=== PATIENT | female | born 1955 | race Hispanic/Latino ===

== ENCOUNTER 2019-08-04 10:15 | Observation (INO) | payer MEDICARE ==
[2019-08-04] VITALS (7 sets, daily range): BP systolic 117–153; BP diastolic 68–75
[~2019-08-04] VITALS: Ht 160 cm; Wt 93.4 kg
[~2019-08-04 10:15] MED LIST: CLOPIDOGREL75 MG PO; LEVOXYL112 MCG PO; LIPITOR20 MG PO; LOPRESSOR25 MG PO; NORVASC5 MG PO
--- OUTSIDE RECORDS SUMMARY | 2019-08-04 10:22 | XMS REPORT ---
Author [facility] Address Unknown Phone Unavailable Care Team Providers Care Avionics Installer Name Role Phone Unavailable Unavailable Payers Payer Name Policy Type Policy Number Effective Date Expiration Date Problems This patient has no known problems. Allergies, Adverse Reactions, Alerts Allergy Name Allergy Type Status Severity Reaction(s) Onset Date Inactive Date Treating Clinician Comments No Known Allergies DA Active U 2018-06-12 00:00:00 No Known Allergies DA Active U 2012-04-18 00:00:00 Medications This patient has no known medications. Results Test Description Test Time Test Comments Text Results Atomic Results Result Comments ALBUMIN 2019-03-22 07:41:00 ALBUMIN (test code=ALB) 3.20 g/dL 3.4-5.0 [id number] 07:41:00* Test Item Value Reference Range Comments PREALBUMIN (test code=PREALB) 15.9 mg/dL 16.0-40.0 CBC W/AUTO [id number] 08:43:00* Test Item Value Reference Range Comments WHITE BLOOD CELL (test code=WBC) 7.51 x10 3/uL 4.5-11.0 RED BLOOD CELL (test code=RBC) 5.40 x10 6/uL 3.54-5.02 HEMOGLOBIN (test code=HGB) 15.8 g/dL 11.0-15.0 HEMATOCRIT (test code=HCT) 49.9 % 33.0-45.0 MEAN CELL VOLUME (test code=MCV) 92.4 fL 81.0-99.0 MEAN CELL HGB (test code=MCH) 29.3 pg 27.0-33.0 MEAN CELL HGB CONCETRATION (test code=MCHC) 31.7 g/dL 33.0-37.0 RED CELL DISTRIBUTION WIDTH CV (test code=RDW) 14.1 % 11.5-14.5 RED CELL DISTRIBUTION WIDTH SD (test code=RDW-SD) 48.2 fL 37.0-54.0 PLATELET COUNT (test code=PLT) 262 x10 3/uL 150-400 MEAN PLATELET VOLUME (test code=MPV) 9.7 fL 7.0-9.0 NEUTROPHIL % (test code=NT%) 63.2 % 56.0-77.0 IMMATURE GRANULOCYTE % (test code=IG%) 0.3 % 0.0-2.0 LYMPHOCYTE % (test code=LY%) 23.7 % 14.0-32.0 MONOCYTE % (test code=MO%) 8.8 % 4.8-9.0 EOSINOPHIL % (test code=EO%) 3.3 % 0.3-3.7 BASOPHIL % (test code=BA%) 0.7 % 0.0-2.0 NUCLEATED RBC % (test code=NRBC%) 0.0 % 0-0 NEUTROPHIL # (test code=NT#) 4.75 x10 3/uL 2.0-7.6 IMMATURE GRANULOCYTE # (test code=IG#) 0.02 x10 3/uL 0.00-0.03 LYMPHOCYTE # (test code=LY#) 1.78 x10 3/uL 1.0-3.8 MONOCYTE # (test code=MO#) 0.66 x10 3/uL 0.1-0.8 EOSINOPHIL # (test code=EO#) 0.25 x10 3/uL 0.0-0.2 BASOPHIL # (test code=BA#) 0.05 x10 3/uL 0.0-0.2 NUCLEATED RBC # (test code=NRBC#) 0.00 x10 3/uL 0.0-0.1 MANUAL DIFF REQUIRED (test code=MDIFF) NO COMPREHENSIVE METABOLIC [id number] 08:04:00* Test Item Value Reference Range Comments SODIUM (test code=NA) 139 mEq/L 134-147 POTASSIUM (test code=K) 4.1 mEq/L 3.4-5.0 CHLORIDE (test code=CL) 106 mEq/L 100-108 CARBON DIOXIDE (test code=CO2) 24 mEq/L 21-33 ANION GAP (test code=GAP) 13 0-20 GLUCOSE (test code=GLU) 89 mg/dL 70-110 BLOOD UREA NITROGEN (test code=BUN) 16 mg/dL 7-18 GLOMERULAR FILTRATION RATE (test code=GFR) 84.0 80-90 Units of measure=ml/min/1.73 m2 CREATININE (test code=CREAT) 0.7 mg/dL 0.6-1.3 TOTAL PROTEIN (test code=PROT) 7.7 g/dL 6.4-8.2 ALBUMIN (test code=ALB) 3.50 g/dL 3.4-5.0 CALCIUM (test code=CA) 9.0 mg/dL 8.0-10.5 BILIRUBIN TOTAL (test code=BILT) 0.90 mg/dL 0.0-1.0 SGOT/AST (test code=AST) 22 IUnit/L 15-37 SGPT/ALT (test code=ALT) 32 IUnit/L 15-65 ALKALINE PHOSPHATASE TOTAL (test code=ALKP) 120 IUnit/L 20-125 [id number] 08:04:00* Test Item Value Reference Range Comments MAGNESIUM (test code=MAG) 2.30 mg/dL 1.8-2.4 [id number] 14:25:00* Test Item Value Reference Range Comments GLUBED (test code=GLUBED) 79 MG/DL 70-110 Performed by certified lye peel operator at [facility] [id number] 17:50:00* Test Item Value Reference Range Comments GLUBED (test code=GLUBED) 101 MG/DL 70-110 Performed by certified lye peel operator at [facility] - MRI C-SPINE W W/O [id number] 12:53:00 FAX: Lea Benitez MD [phone] [place]: St: [facility] FAX: Andreina Seymour [phone] Name: JODY CASTRO [facility] [place] : 1955 Age/S: 63/F [address] [place] [address] Unit #: [id number] Loc: [address] [place] [address] Phys: Andreina Davenport MD Acct: [id number] Dis Date: Status: ADM IN PHONE #: [phone] Exam Date: 03/12/2019 1143 FAX #: [phone] Reason: left sided weakness EXAMS: CPT CODE: [id number] MRI C-SPINE W W/O CONT 60177 Patient Name: JODY CASTRO : 1955; Age: 63 years y/o Female MR: [id number] Study: - MRI C-SPINE W W/O CONT 03/12/2019 10:09 AM Ordering Physician: Andreina Banks MD Clinical Indication: left sided weakness Comparison: None TECHNIQUE: Multiplanar T1, T2, STIR weighted and postcontrast MRI of the cervical spine is performed on the 1.5 Arianne magnet. Contrast: Dotarem 20 mL FINDINGS: ALIGNMENT AND GENERAL A SSESSMENT: Mild reversal of the normal cervical lordosis. Mild degen erative disc throughout the cervical spine. Retention cysts in bilateral m axillary sinuses. No spinal cord signal abnormality DISC SPA VIKKI: C2-C3:No significant disc protrusion, spinal canal narrowing, or neural foraminal narrowing. C3-C4: No significant disc p rotrusion, spinal canal narrowing, or neural foraminal narrowing. C4-C5: Posterior disc osteophyte complex with effacement of the ante rior thecal sac and indentation of the anterior cervical cord without fora katya or canal stenosis. C5-C6: Posterior disc osteophyte complex without foraminal or canal stenosis. C6-C7:Posterior disc osteophyte complex without foraminal or canal stenosis. C7- T1: No significant disc protrusion, spinal canal narrowing, or neural fora katya narrowing. PAGE 1 Signed Report (CONTINUED) FAX: Lea Benitez MD [phone] [place]u s: [facility] [address]: ADM FAX: Andreina Seymour [phone] Name: JODY CASTRO [facility] : 1955 Ag e/S: 63/F [address] [place] [address] Unit #: [id number] Loc: D[address].M[address] [place] [address] Phys: Andreina Davenport MD Acct: [id number] Dis Date: Status: ADM IN PHONE #: [phone] Exam Date: 03/12/2019 1143 FAX #: [phone] Reason: left sided weakness EXAMS: CPT CODE: [id number] MRI C-SPINE W W/O CONT 60047 <Continued> IMPRESSION: 1. No significant neural foraminal or spinal canal stenosis. 2. Mild degenerative changes of the cervical spine, as detailed above. SL: [id number] at 5451 Reported and signed by: Adolfo Mann M.D. CC: Lea Benitez MD; Andreina Banks MD Technologist: William Ocampo RT(R)(CT)(MR) Trnscrd Date/Time/By: 03/12/2019 (6472) : By: [email or web address] Orig Print D/T: S: 03/12/2019 (0624) PAGE 2 Signed Report [id number] 10:32:00* Test Item Value Reference Range Comments GLUBED (test code=GLUBED) 116 MG/DL 70-110 Performed by certified lye peel operator at [facility] [id number] 10:31:00* Test Item Value Reference Range Comments GLUBED (test code=GLUBED) 102 MG/DL 70-110 Performed by certified lye peel operator at [facility] BASIC METABOLIC [id number] 07:07:00* Test Item Value Reference Range Comments SODIUM (test code=NA) 140 mEq/L 134-147 POTASSIUM (test code=K) 3.9 mEq/L 3.4-5.0 CHLORIDE (test code=CL) 109 mEq/L 100-108 CARBON DIOXIDE (test code=CO2) 27 mEq/L 21-33 ANION GAP (test code=GAP) 8 0-20 GLUCOSE (test code=GLU) 86 mg/dL 70-110 BLOOD UREA NITROGEN (test code=BUN) 12 mg/dL 7-18 GLOMERULAR FILTRATION RATE (test code=GFR) 84.0 80-90 Units of measure=ml/min/1.73 m2 CREATININE (test code=CREAT) 0.7 mg/dL 0.6-1.3 CALCIUM (test code=CA) 8.4 mg/dL 8.0-10.5 [id number] 07:07:00* Test Item Value Reference Range Comments PHOSPHOROUS (test code=PHOS) 3.3 mg/dL 2.5-4.9 [id number] 07:07:00* Test Item Value Reference Range Comments MAGNESIUM (test code=MAG) 2.20 mg/dL 1.8-2.4 CBC W/AUTO [id number] 06:40:00* Test Item Value Reference Range Comments WHITE BLOOD CELL (test code=WBC) 7.07 x10 3/uL 4.5-11.0 RED BLOOD CELL (test code=RBC) 5.08 x10 6/uL 3.54-5.02 HEMOGLOBIN (test code=HGB) 15.2 g/dL 11.0-15.0 HEMATOCRIT (test code=HCT) 47.9 % 33.0-45.0 MEAN CELL VOLUME (test code=MCV) 94.3 fL 81.0-99.0 MEAN CELL HGB (test code=MCH) 29.9 pg 27.0-33.0 MEAN CELL HGB CONCETRATION (test code=MCHC) 31.7 g/dL 33.0-37.0 RED CELL DISTRIBUTION WIDTH CV (test code=RDW) 14.5 % 11.5-14.5 RED CELL DISTRIBUTION WIDTH SD (test code=RDW-SD) 50.6 fL 37.0-54.0 PLATELET COUNT (test code=PLT) 245 x10 3/uL 150-400 MEAN PLATELET VOLUME (test code=MPV) 9.8 fL 7.0-9.0 NEUTROPHIL % (test code=NT%) 67.6 % 56.0-77.0 IMMATURE GRANULOCYTE % (test code=IG%) 0.1 % 0.0-2.0 LYMPHOCYTE % (test code=LY%) 21.2 % 14.0-32.0 MONOCYTE % (test code=MO%) 6.8 % 4.8-9.0 EOSINOPHIL % (test code=EO%) 3.7 % 0.3-3.7 BASOPHIL % (test code=BA%) 0.6 % 0.0-2.0 NUCLEATED RBC % (test code=NRBC%) 0.0 % 0-0 NEUTROPHIL # (test code=NT#) 4.78 x10 3/uL 2.0-7.6 IMMATURE GRANULOCYTE # (test code=IG#) 0.01 x10 3/uL 0.00-0.03 LYMPHOCYTE # (test code=LY#) 1.50 x10 3/uL 1.0-3.8 MONOCYTE # (test code=MO#) 0.48 x10 3/uL 0.1-0.8 EOSINOPHIL # (test code=EO#) 0.26 x10 3/uL 0.0-0.2 BASOPHIL # (test code=BA#) 0.04 x10 3/uL 0.0-0.2 NUCLEATED RBC # (test code=NRBC#) 0.00 x10 3/uL 0.0-0.1 MANUAL DIFF REQUIRED (test code=MDIFF) NO [id number] 20:46:00* Test Item Value Reference Range Comments GLUBED (test code=GLUBED) 111 MG/DL 70-110 Performed by certified lye peel operator at [facility] [id number] 18:00:00* Test Item Value Reference Range Comments GLUBED (test code=GLUBED) 81 MG/DL 70-110 Performed by certified lye peel operator at [facility] - MRI BRAIN W/O [id number] 16:11:00 FAX: Lea Benitez MD [phone] [place]: St: ADM FAX: Ronda Snow MD [phone] Name: JODY CASTRO [facility] [place] : 1955 Age/S: 63/F [address] [place] [address] Unit #: [id number] Loc: [facility] X [address] Phys: Ronda Parkinson MD Acct: [id number] Dis Date: Status: ADM IN PHONE #: [phone] Exam Date: 03/11/2019 1541 FAX #: [phone] Reason: Ischemic Stroke EXAMS: CPT CODE: [id number] MRI BRAIN W/O CONT 73800 MRI BRAIN WITHOUT CONTRAST INDICATION: Left-sided weakness. Acute stroke. TECHNIQUE: Multiple MR sequences of the brain were performed without contrast. COMPARISONS: CT brain 03/10/2019. CT angiogram head 03/10/2019. FINDINGS: Th ere are mucous retention cysts or polyps in the maxillary sinuses without a fluid level. The mastoid air cells and middle ears appear clear as visualized. The vascular flow voids are preserved. The cerebral ventricles are normal caliber. There is no cerebral mass effect, midline shift, intracranial hemorrhage or acute large vessel territory cerebral cortical edema. There is no restricted water diffusion. There are min imal chronic small vessel ischemic changes in the white matter. There is mild generalized brain parenchymal volume loss. IMPRESSION: 1. There is no acute intracranial process. There is no cerebr al edema, acute ischemia or hemorrhage. 2. There are minimal ch ronic changes of small vessel ischemic disease in the white matter. The re is mild brain parenchymal volume loss. Electronically S igned by Ammy Rodriguez on 03/11/2019 at 1611 Reported and signed by: Axel Rodriguez D.O. CC: Lea Benitez MD; Ronda Parkinson MD Technologist: William Ocampo, RT(R)(CT)(MR) Trnscrd Date/Time/By: 03/2019 (1611) : By: [email or web address] Orig Print D/T: S: 03/11/2019 (0728) PAGE 1 Signed Report [id number] 12:04:00* Test Item Value Reference Range Comments GLUBED (test code=GLUBED) 100 MG/DL 70-110 Performed by certified lye peel operator at [facility] [id number] 07:54:00* Test Item Value Reference Range Comments GLUBED (test code=GLUBED) 99 MG/DL 70-110 Performed by certified lye peel operator at [facility] [id number] 06:14:00* Test Item Value Reference Range Comments HOMOCYSTEINE (test code=HOMOCY) 4.3 umol/L 3.2-10.7 ICE,INFORMED WES FORD TO SEND LAV TOP ON ICE.EMILIA OCHOA.KDPBASIC METABOLIC [id number] 05:56:00* Test Item Value Reference Range Comments SODIUM (test code=NA) 143 mEq/L 134-147 POTASSIUM (test code=K) 4.2 mEq/L 3.4-5.0 CHLORIDE (test code=CL) 111 mEq/L 100-108 CARBON DIOXIDE (test code=CO2) 25 mEq/L 21-33 ANION GAP (test code=GAP) 11 0-20 GLUCOSE (test code=GLU) 89 mg/dL 70-110 BLOOD UREA NITROGEN (test code=BUN) 11 mg/dL 7-18 GLOMERULAR FILTRATION RATE (test code=GFR) 84.0 80-90 Units of measure=ml/min/1.73 m2 CREATININE (test code=CREAT) 0.7 mg/dL 0.6-1.3 CALCIUM (test code=CA) 8.4 mg/dL 8.0-10.5 LIPID PROFILE (CORONARY RISK)2019-03-11 05:56:00* Test Item Value Reference Range Comments TRIGLYCERIDES (test code=TRIG) 230 mg/dL 40-150 CHOLESTEROL (test code=CHOL) 130 mg/dL <200 CHOLESTEROL/HDL RATIO (test code=CHOLHDL) 2.41 RATIO 3.27-4.44 RISK ASSOCIATED WITH CHOL/HDL RATIOS: RISK MALE FEMALE1/2 AVERAGE 3.43 3.27AVERAGE 4.97 4.442X AVERAGE 9.55 7.053X AVERAGE 23.39 11.04 NOTE THAT THE REFERENCE VALUE IS RELATEDTO RISK LEVELS RECOMMENDED BY THE NATL.HEART, LUNG, AND BLOOD INST. HDL CHOLESTEROL (test code=HDL) 54.0 mg/dL 39-96 LIPOPROTEIN LDL (test code=LDL) 55 mg/dL 0-100 <100 [id number] NEAR OPTIMAL/ABOVE [id number] HIGH>IK=147 VERY HIGH*Guidelines provided by the National Cholesterol EducationProgram Adult Treatment Panel III HEPATIC FUNCTION [id number] 05:56:00* Test Item Value Reference Range Comments TOTAL PROTEIN (test code=PROT) 6.9 g/dL 6.4-8.2 ALBUMIN (test code=ALB) 3.30 g/dL 3.4-5.0 BILIRUBIN TOTAL (test code=BILT) 0.80 mg/dL 0.0-1.0 BILIRUBIN DIRECT (test code=BILD) 0.20 MG/DL 0.0-0.30 BILIRUBIN INDIRECT (test code=BILIND) 0.60 MG/DL SGOT/AST (test code=AST) 21 IUnit/L 15-37 SGPT/ALT (test code=ALT) 25 IUnit/L 15-65 ALKALINE PHOSPHATASE TOTAL (test code=ALKP) 96 IUnit/L 20-125 [id number] 05:56:00* Test Item Value Reference Range Comments PHOSPHOROUS (test code=PHOS) 4.6 mg/dL 2.5-4.9 [id number] 05:56:00* Test Item Value Reference Range Comments MAGNESIUM (test code=MAG) 2.40 mg/dL 1.8-2.4 SED RATE [id number] 05:55:00* Test Item Value Reference Range Comments SED RATE WESTERGREN (test code=SEDW) 10 mm/hr 0-20 HGBA1C%2019-03-11 05:42:00* Test Item Value Reference Range Comments HGBA1C% (test code=HGBA1C%) 5.9 %A1C 4.8-6.0 CBC W/AUTO [id number] 05:19:00* Test Item Value Reference Range Comments WHITE BLOOD CELL (test code=WBC) 7.00 x10 3/uL 4.5-11.0 RED BLOOD CELL (test code=RBC) 4.86 x10 6/uL 3.54-5.02 HEMOGLOBIN (test code=HGB) 14.5 g/dL 11.0-15.0 HEMATOCRIT (test code=HCT) 45.4 % 33.0-45.0 MEAN CELL VOLUME (test code=MCV) 93.4 fL 81.0-99.0 MEAN CELL HGB (test code=MCH) 29.8 pg 27.0-33.0 MEAN CELL HGB CONCETRATION (test code=MCHC) 31.9 g/dL 33.0-37.0 RED CELL DISTRIBUTION WIDTH CV (test code=RDW) 14.6 % 11.5-14.5 RED CELL DISTRIBUTION WIDTH SD (test code=RDW-SD) 49.5 fL 37.0-54.0 PLATELET COUNT (test code=PLT) 246 x10 3/uL 150-400 MEAN PLATELET VOLUME (test code=MPV) 9.5 fL 7.0-9.0 NEUTROPHIL % (test code=NT%) 63.3 % 56.0-77.0 IMMATURE GRANULOCYTE % (test code=IG%) 0.1 % 0.0-2.0 LYMPHOCYTE % (test code=LY%) 26.0 % 14.0-32.0 MONOCYTE % (test code=MO%) 7.1 % 4.8-9.0 EOSINOPHIL % (test code=EO%) 2.9 % 0.3-3.7 BASOPHIL % (test code=BA%) 0.6 % 0.0-2.0 NUCLEATED RBC % (test code=NRBC%) 0.0 % 0-0 NEUTROPHIL # (test code=NT#) 4.43 x10 3/uL 2.0-7.6 IMMATURE GRANULOCYTE # (test code=IG#) 0.01 x10 3/uL 0.00-0.03 LYMPHOCYTE # (test code=LY#) 1.82 x10 3/uL 1.0-3.8 MONOCYTE # (test code=MO#) 0.50 x10 3/uL 0.1-0.8 EOSINOPHIL # (test code=EO#) 0.20 x10 3/uL 0.0-0.2 BASOPHIL # (test code=BA#) 0.04 x10 3/uL 0.0-0.2 NUCLEATED RBC # (test code=NRBC#) 0.00 x10 3/uL 0.0-0.1 MANUAL DIFF REQUIRED (test code=MDIFF) NO [id number] 01:14:00* Test Item Value Reference Range Comments GLUBED (test code=GLUBED) 86 MG/DL 70-110 Performed by certified lye peel operator at [facility] [id number] 19:39:00* Test Item Value Reference Range Comments GLUBED (test code=GLUBED) 96 MG/DL 70-110 Performed by certified lye peel operator at [facility] [id number] 18:56:00* Test Item Value Reference Range Comments TROPONIN-I (test code=TROPI) < 0.015 ng/mL 0.000-0.045 Negative: <=0.045 Positive: >=0.046 Correlation with serial results, other cardiac markers andclinical findings is necessary to determine the clinicalsignificance of this result. Results using different methodologies should not be comparedto one another as quantitative results may vary by method. COMMENTS: 3 troponins total (including troponin done in ED)- XR CHEST 1 V 2019-03-10 15:25:00 FAX: Dave Osei MD [phone] [place]: St: ADM Name: JODY ROSADO [facility] : [birth year] Age/S: 63/F [address] [place], [place] [address]vd Unit #: [id number] Loc: [place] [address] Phys: Dave Reis MD Acct: [id number] Dis Date: Status: ADM IN PHONE #: [phone] Exam Date: 03/10/2019 1511 FAX #: [phone] Reason: stroke EXAMS: CPT CODE: [id number] XR CHEST 1 V 21063 1 VIEW CXR. PORTABLE EXAM 3:04 PM HISTORY: Acute stroke. COMPARISON: 06/12/2018 chest x-ray. The lungs are clear with normal pulmonary vasculatur e. Cardiomediastinal silhouette normal. No pleural abnormality. Bony thorax intact. IMPRESSION: Normal exam. END OF IMPRESSION SL: [id number] at 1525 Reported and signed by: Luke Salgado M.D. CC: Dave Reis MD Technologist: So Martinez, RT(R); Cherry SaezRT(R) Trnscrd Date/Time/By: 03/10/2019 (152) : By: Rell Orig Print D/T: S: (1081) PAGE 1 Signed Rep ort - CT ANGIO [id number] 14:22:00 Name: JODY CASTRO [facility] : 1955 Age/S: 63 / F [address] [place] [address] Unit #: [id number] Loc: [place] [address] Phys: James Reis MD Acct: [id number] Di s Date: Status: REG ER PHONE #: Exam Date: 03/10/2019 1355 FAX #: Reason: L SIDED WEAKNESS EXAMS: CPT CODE: [id number] CT ANGIO NECK [address] STUDY: - CT ANGIO HEAD, - CT ANGIO NECK 03/10/2019 1:51 PM Ordering Physician: Dave Reis MD Patient Name: JODY CASTRO MR: [id number] : 1955; Age: 63 years y/o Female Clinical Indication: L SIDED WEA KNESS Comparison: None TECHNIQUE: Sequential trans-a xial images of the head and neck were obtained with a multi-detector helic al CT after iodinated contrast administration. Additionally, two-dimension al and three-dimensional reformatted images were prepared. IV CONTRAST: 100cc Omnipaque 300 DOSE: CT imaging performed at this loca tion utilizes radiation dose optimization technique which includes one or more of the followin) Automated exposure control; 2) Adjustment of the mA and/or kV according to patient's size; 3) Use of iterative reconstruct ion techniques. DLP (mGy-cm): 2007 CTA NECK: VASCULAR EVALUATION Aortic arch and great vessel origins: Mild to moderate atherosclerosis in the arch with calcified and noncalcifi ed plaque noted. Brachiocephalic trunk: No significant atheroscler osis, narrowing, aneurysm, or dissection. Subclavian arterie s: No significant narrowing in the visualized portions after accounting fo r mild artifact. Right carotid artery: Normal without evidence of significant atherosclerosis, narrowing, or dissection. Left carotid artery: Normal without evidence of significant atherosclerosis, na rrowing, or dissection. Vertebral arteries: No significant atheros clerosis, narrowing, or dissection. PAGE 1 Signed Report (CONTINUED) Name: [facility] [place] : 1955 Age/S: 63 / F [address] [place] [address] Blvd Unit #: [id number] Loc: [place] [address] Phys: Dave Reis MD Acct: [id number] Dis Date: Status: R EG ER PHONE #: [phone] Exam Date: 02/2019 1355 FAX #: [phone] Reason: L SIDED WEAKNE SS EXAMS: CPT CODE: [id number] CT ANGIO NECK 7 0498 <Continued> Any reported ICA stenosis directly references the distal internal carotid diameter as the denominator for stenosis measurement. NON-VASCULAR STRUCTURES: Soft tissues: No significant abnormality or mass. Lymphadenopathy: Scattered subcentimeter bilateral cervical lymph nodes without lymphadenopathy. Airway: Clear. Visualized lung apices: Clear. Osseous structures: Mild spinal degenerative change without fracture, dislocation, or focal osseous lesion. CTA HEAD: ANTERIOR CIRCULATION Internal carotid arteries: No focal stenosis or aneurysm. Middle cerebral arteries: No focal stenosis or aneurysm in the M1 and M2 segments. The peripheral MCA branches appear normal. Anterior cerebral arteries: No focal stenosis or aneurysm. Normal anterior communicating artery. POSTERIOR CIRCULATION Vertebrobasilar system: No focal stenosis or aneurysm. Posterior cerebral arteries: No focal stenosis or aneurysm. Superior cerebellar arteries: Normal in appearance. AICA: Normal in appearance. PICA: Normal in appearance. PAGE 2 Signed Report (CONTINUED) Name: JODY CASTRO [facility] [place] : 1955 Age/S: 63 / F [address] [place] [address] Unit #: [id number] Loc: [place] [address] Phys: Dave Reis MD Acct: [id number] Dis Date: Status: REG ER PHONE #: [phone] Exam Date: 03/10/2019 1355 FAX #: [phone] Reason: L SIDED WEAKNESS EXAMS: CPT CODE: [id number] CT ANGIO NECK [address]779 < Continued> BRAIN PARENCHYMA: The brain volume and ventricle size are appropriate for age. No evidence of acute intracranial hemorrhage, mass lesion, mass effect, midline shift, or extra-axial fluid collection. Postcontrast images demonstrate no abnormal enhancement. VENTRICLES: The lateral ventricles, third ventricle, fourth ventricle, and basilar cisterns are appropriate for degree of atrophy present. PARANASAL SINUSES: Bilateral maxillary sinus retention cysts MASTOIDS: Clear. ORBITS: The visualized portions of the orbits are normal. SOFT TISSUES: No significant abnormality. SKULL: No acute fracture or suspicious osseous lesion. IMPRESSION: No acute vascular abnormality or significant vascular stenosis in the head and neck. Calcified and noncalcified plaque noted at the aortic arch. Findings discussed with Dr. Szymanski at 2:20 PM 03/10/2019 by telephone. SL: [id number] at 7736 Reported and signed by: Adolfo Mann M.D. CC: Dave Reis MD Technologist:RT Humberto(R) CTDI: DLP: Trnscb Date/Time: 03/10/2019 (1422) t.[email or web address].[email or web address] Orig Print D/T: S: 03/10/2019 (1988) PAGE 3 Signed Report - CT ANGIO [id number] 14:22:00 Name: JODY CASTRO [facility] [place] : 1955 Age/S: 63 / F [address] [place] [address] Unit #: [id number] Loc: [place] [address] Phys: Dave Reis MD Acct: [id number] Dis Date: Status: REG ER PHONE #: [phone] Exam Date: 03/10/2019 1355 FAX #: [phone] Reason: L SIDED WEAKNESS EXAMS: CPT CODE: [id number] CT ANGIO HEAD 39582 STUDY: - CT ANGIO HEAD, - CT ANGIO NECK 03/10/2019 1:51 PM Ordering Physician: Dave Reis MD Patient Name: JODY CASTRO MR: [id number] : 1955; Age: 63 years y/o Female Clinical Indication: L SIDED WEAKNESS Comparison: None TECHNIQUE: Sequential trans-axial images of the head and neck were obtained with a multi-detector helical CT after iodinated contrast administration. Additionally, two-dimensional and three-dimensional reformatted images were prepared. IV CONTRAST: 100cc Omnipaque 300 DOSE: CT imaging performed at this location utilizes radiation dose optimization technique which includes one or more of the followin) Automated exposure control; 2) Adjustment of the mA and/or kV according to patient's size; 3) Use of iterative reconstruction techniques. DLP (mGy-cm): 2007 CTA NECK: VASCULAR EVALUATION Aortic arch and great vessel origins: Mild to moderate atherosclerosis in the arch with calcified and noncalcified plaque noted. Brachiocephalic trunk: No significant atherosclerosis, narrowing, aneurysm, or dissection. Subclavian arteries: No significant narrowing in the visualized portions after accounting for mild artifact. Right carotid artery: Normal without evidence of significant atherosclerosis, narrowing, or dissection. Left carotid artery: Normal without evidence of significant atherosclerosis, narrowing, or dissection. Vertebral arteries: No significant atherosclerosis, narrowing, or dissection. PAGE 1 Signed Report (CONTINUED) Name: JODY CASTRO [facility] : 1955 Age/S: 63 / F [address] [place] [address] Blvd Unit #: [id number] Loc: [place] [address] Phys: Dave Reis MD Acct: [id number] Dis Date: Status: REG ER PHONE #: [phone] Exam Date: 03/10/2019 1355 FAX #: [phone] Reason: L SIDED WEAKNESS EXAMS: CPT CODE: [id number] CT ANGIO HEAD 14524 <Continued> Any reported ICA stenosis directly references the distal internal carotid diameter as the denominator for stenosis measurement. NON-VASCULAR STRUCTURES: Soft tissues: No significant abnormality or mass. Lymphadenopathy: Scattered subcentimeter bilateral cervical lymph nodes without lymphadenopathy. Airway: Clear. Visualized lung apices: Clear. Osseous structures: Mild spinal degenerative change without fracture, dislocation, or focal osseous lesion. CTA HEAD: ANTERIOR CIRCULATION Internal carotid arteries: No focal stenosis or aneurysm. Middle cerebral arteries: No focal stenosis or aneurysm in the M1 and M2 segments. The peripheral MCA branches appear normal. Anterior cerebral arteries: No focal stenosis or aneurysm. Normal anterior communicating artery. POSTERIOR CIRCULATION Vertebrobasilar system: No focal stenosis or aneurysm. Posterior cerebral arteries: No focal stenosis or aneurysm. Superior cerebellar arteries: Normal in appearance. AICA: Normal in appearance. PICA: Normal in appearance. PAGE 2 Signed Report (CONTINUED) Name: JODY CASTRO [facility] [place] : 1955 Age/S: 63 / F [address] [place] [address] Blvd Unit #: [id number] Loc: [place] [address] Phys: Dave Reis MD Acct: [id number] Dis Date: Status: REG ER PHONE #: [phone] Exam Date: 03/10/2019 1355 FAX #: [phone] Reason: L SIDED WEAKNESS EXAMS: CPT CODE: [id number] CT ANGIO HEAD 86783 < Continued> BRAIN PARENCHYMA: The brain volume and ventricle size are appropriate for age. No evidence of acute intracranial hemorrhage, mass lesion, mass effect, midline shift, or extra-axial fluid collection. Postcontrast images demonstrate no abnormal enhancement. VENTRICLES: The lateral ventricles, third ventricle, fourth ventricle, and basilar cisterns are appropriate for degree of atrophy present. PARANASAL SINUSES: Bilateral maxillary sinus retention cysts MASTOIDS: Clear. ORBITS: The visualized portions of the orbits are normal. SOFT TISSUES: No significant abnormality. SKULL: No acute fracture or suspicious osseous lesion. IMPRESSION: No acute vascular abnormality or significant vascular stenosis in the head and neck. Calcified and noncalcified plaque noted at the aortic arch. Findings discussed with Dr. Szymanski at 2:20 PM 03/10/2019 by telephone. SL: [id number] at 1422 Reported and signed by: Adolfo Mann M.D. CC: Dave Reis MD Technologist:Dennys Edwards, RT(R) CTDI: DLP: Trnscb Date/Time: 03/10/2019 (4689) [email or web address] Orig Print D/T: S: 03/10/2019 (6838) PAGE 3 Signed Report BASIC METABOLIC [id number] 14:16:00* Test Item Value Reference Range Comments SODIUM (test code=NA) 140 mEq/L 134-147 POTASSIUM (test code=K) 4.2 mEq/L 3.4-5.0 CHLORIDE (test code=CL) 107 mEq/L 100-108 CARBON DIOXIDE (test code=CO2) 27 mEq/L 21-33 ANION GAP (test code=GAP) 10 0-20 GLUCOSE (test code=GLU) 128 mg/dL 70-110 BLOOD UREA NITROGEN (test code=BUN) 16 mg/dL 7-18 GLOMERULAR FILTRATION RATE (test code=GFR) 62.8 80-90 Units of measure=ml/min/1.73 m2 CREATININE (test code=CREAT) 0.9 mg/dL 0.6-1.3 CALCIUM (test code=CA) 8.6 mg/dL 8.0-10.5 [id number] 14:16:00* Test Item Value Reference Range Comments TROPONIN-I (test code=TROPI) < 0.015 ng/mL 0.000-0.045 Negative: <=0.045 Positive: >=0.046 Correlation with serial results, other cardiac markers andclinical findings is necessary to determine the clinicalsignificance of this result. Results using different methodologies should not be comparedto one another as quantitative results may vary by method. - CT HEAD/BRAIN W/O [id number] 14:09:00 Name: JODY CASTRO [facility] : 1955 Age/S: 63 / F [address] [place] [address] Unit #: [id number] Loc: [place] [address] Phys: Dave Reis MD Acct: [id number] Dis Date: Status: PRE ER PHONE #: [phone] Exam Date: 03/10/2019 1351 FAX #: [phone] Reason: L SIDED WEAKNESS, CODE NEURO EXAMS: CPT CODE: [id number] CT HEAD/BRAIN W/O CONT 20695 STUDY: - CT HEAD/BRAIN W/O CONT 03/10/2019 1:45 PM Ordering Physician: Dave Reis MD Patient Name: JODY CASTRO MR: [id number] : 1955; Age: 63 years y/o Female Clinical Indication: L SIDED WEAKNESS, CODE NEURO Comparison: May 12, 2017 TECHNIQUE: Multiple contiguous transaxial noncontrast CT images were obtained through the head. Coronal and sagittal reformatted images were prepared. DOSE: CT imaging performed at this location utilizes radiation dose optimization technique which includes one or more of the followin) Automated exposure control; 2) Adjustment of the mA and/or kV according to patient's size; 3) Use of iterative reconstruction techniques. DLP (mGy-cm): 1017 FINDINGS: The brain volume is appropriate for age. No evidence of acute intracranial hemorrhage, mass lesion, mass effect, midline shift, or extra-axial fluid collection. The lateral ventricles, third ventricle, fourth ventricle, and basilar cisterns are ap propriate for degree of atrophy present. Mucocele is noted in anthony ateral maxillary sinuses. Mastoids are clear. IMPRESSION: No acute intracranial abnormality. If there is further concern for intracranial pathology or acute stroke, further assessment with an MRI of the brain should be considered. Code neuro findings were communicated to Summer Li on 03/10/2019 2:01 PM. PAGE 1 Maxine d Report (CONTINUED) Name: JODY CASTRO [facility] : 1955 Age/S: 63 / F [address] [place] [address] Unit #: [id number] Loc: [facility] X [address] Phys: Dave Reis MD Acct: [id number] Dis Date: Status: PRE ER PHONE #: [phone] Exam Date: 03/10/2019 1 351 FAX #: [phone] Reason: L SIDED WEAKNESS, CODE NEURO EXAMS: CPT CODE: [id number] CT HEAD/BRAIN W/O CONT 50178 <Continued> SL: [id number] at 1409 Reported and signed by: Coco Gannon D.O. CC: Dave Reis MD Technologist:Dennys Edwards, RT(R) CTDI: DLP: Trnscb Date/Time: 03/10/2019 (140) [id number] Orig Print D/T: S: 03/10/2019 (4156) PAGE 2 Signed Report [id number] 14:02:00* Test Item Value Reference Range Comments GLUBED (test code=GLUBED) 132 MG/DL 70-110 Performed by certified lye peel operator at [facility] PROTHROMBIN [id number] 14:01:00* Test Item Value Reference Range Comments PROTHROMBIN TIME PATIENT (test code=PTP) 12.1 SECONDS 9.3-12.9 INTERNATIONAL NORMAL RATIO (test code=INR) 1.1 0.8-1.2 TARGET INR BY INDICATION Indication INR1. Prophylaxis of venous thrombosis 2.0 - 3.0 (orthopedic surgery), Prophylaxis of venous thrombosis (other than high-risk surgery), Treatment of Deep Vein Thrombosis/Pulmonary Embolism, Prevention of systemic embolism - Tissue heart valves, Acute Myocardial Infarction (to prevent systemic embolism), Valvular heart disease, Atrial Fibrillation, Bileaflet mechanical valve in aortic position.2. Mechanical prosthetic valves (high risk), 2.5 - 3.5 Presence of Lupus Anticoagulant or Antiphospholipid Antibodies, Prevention of systemic embolism - Acute Myocardial Infarction (to prevent recurrent infarct). THROMBOPLASTIN TIME [id number] 14:01:00* Test Item Value Reference Range Comments THROMBOPLASTIN TIME PARTIAL (test code=PTT) 33.1 Seconds 25.0-39.5 Therapeutic Range: 50.4 - 88.3 Seconds Effective 01/19/2019 PROTHROMBIN [id number] 13:57:00* Test Item Value Reference Range Comments PROTHROMBIN TIME PATIENT (test code=PTP) 12.1 SECONDS 9.3-12.9 INTERNATIONAL NORMAL RATIO (test code=INR) 1.1 0.8-1.2 TARGET INR BY INDICATION Indication INR1. Prophylaxis of venous thrombosis 2.0 - 3.0 (orthopedic surgery), Prophylaxis of venous thrombosis (other than high-risk surgery), Treatment of Deep Vein Thrombosis/Pulmonary Embolism, Prevention of systemic embolism - Tissue heart valves, Acute Myocardial Infarction (to prevent systemic embolism), Valvular heart disease, Atrial Fibrillation, Bileaflet mechanical valve in aortic position.2. Mechanical prosthetic valves (high risk), 2.5 - 3.5 Presence of Lupus Anticoagulant or Antiphospholipid Antibodies, Prevention of systemic embolism - Acute Myocardial Infarction (to prevent recurrent infarct). THROMBOPLASTIN TIME [id number] 13:57:00* Test Item Value Reference Range Comments THROMBOPLASTIN TIME PARTIAL (test code=PTT) Seconds 25.0-39.5 CBC W/O [id number] 13:57:00* Test Item Value Reference Range Comments WHITE BLOOD CELL (test code=WBC) 6.94 x10 3/uL 4.5-11.0 RED BLOOD CELL (test code=RBC) 5.25 x10 6/uL 3.54-5.02 HEMOGLOBIN (test code=HGB) 15.7 g/dL 11.0-15.0 HEMATOCRIT (test code=HCT) 47.5 % 33.0-45.0 MEAN CELL VOLUME (test code=MCV) 90.5 fL 81.0-99.0 MEAN CELL HGB (test code=MCH) 29.9 pg 27.0-33.0 MEAN CELL HGB CONCETRATION (test code=MCHC) 33.1 g/dL 33.0-37.0 RED CELL DISTRIBUTION WIDTH CV (test code=RDW) 14.2 % 11.5-14.5 RED CELL DISTRIBUTION WIDTH SD (test code=RDW-SD) 47.1 fL 37.0-54.0 PLATELET COUNT (test code=PLT) 243 x10 3/uL 150-400 MEAN PLATELET VOLUME (test code=MPV) 9.5 fL 7.0-9.0
[2019-08-04] MEDS ORDERED: BUPIVACAINE 0.25%/EPI 30ML SDV INJ ONE (12:13)
[2019-08-04] MEDS ORDERED: HYDROMORPHONE 1MG/1ML INJ ONE (12:59)
[2019-08-04] MEDS ORDERED: ESTROGENS CONJUGATED VAGINAL CR 45 GM TUBE PV ONE (13:39)
[2019-08-04] MEDS ORDERED: ACETAMINOPHEN 1000 MG/100 ML 100 ML IV ONE (13:39)
[2019-08-04] MEDS ORDERED: SUGAMMADEX SODIUM 200 MG/2 ML VIAL IV ONE (13:58)
[2019-08-04] MEDS ORDERED: KETOROLAC TROMETHAMINE 30 MG/ML VIAL IM PRN (14:15)
[2019-08-04] MEDS ORDERED: ACETAMINOPHEN 325 MG TAB PO PRN (14:15)
[2019-08-04] MEDS ORDERED: DIPHENHYDRAMINE HCL 25 MG CAP PO PRN (14:15)
[2019-08-04] MEDS ORDERED: ZOLPIDEM TARTRATE 5 MG TAB PO PRN (14:15)
[2019-08-04] MEDS ORDERED: HYDROCODONE/APAP 5MG-325MG TAB PO PRN (14:15)
[2019-08-04] MEDS ORDERED: DOCUSATE SODIUM 100 MG CAP PO PRN (14:15)
[2019-08-04] MEDS: LACTATED RINGER'S 1,000 ML IV SCH (16:05)
--- NOTE | 2019-08-04 16:56 | Operative Report ---
DATE OF PROCEDURE: SURGEON: Daphney Ruff MD PREOPERATIVE DIAGNOSIS: Pelvic organ prolapse. POSTOPERATIVE DIAGNOSIS: Pelvic organ prolapse. PROCEDURES: Vaginal hysterectomy and anterior-posterior repair sacrospinous complex. ESTIMATOR LUMBER: Dr. Villarreal. COMPLICATIONS: None. ESTIMATED BLOOD LOSS: 150 mL. DESCRIPTION OF PROCEDURE: The patient was taken to the OR where general anesthesia was induced. She was prepped and draped in a sterile fashion, placed in dorsal lithotomy position. Examination under anesthesia reveals stage III uterine prolapse with stage III cystocele and stage II rectocele. Single-tooth tenaculum was applied on the cervix and subvaginal tissue was injected with Marcaine with epinephrine 0.25% about 20 mL around the cervix. A circumferential vaginal skin incision was made with a scalpel at the level of the bladder line and the bladder was dissected off the cervix using curved Ocasio scissors and gentle sweeps of latex wrapped on the index finger. Two hemostats were applied on the vaginal skin. The vagina was dissected off by using Metzenbaum scissors using push spread technique and the vagina was opened in the midline using the same instrument. The flaps of vagina dissected off the underlying bladder using both sharp and blunt dissection. Gentle sweeps of latex then wrapped on the index finger. The pelvic fascia was pierced around the inferior pubic ramus and ischial spine and sacrospinous ligament was palpated. A Vicryl suture was placed on the sacrospinous ligament about 1 cm medial to the ischial spine using the Capio needle tucker. The same was repeated on the other side of the pelvis. Following this, a pursestring suture around the bladder was placed using a plain catgut 3-0 and bladder was reduced. The pubocervical ligaments were approximated using Vicryl 0 interrupted sutures. Excess vaginal skin was trimmed off using curved Ocasio scissors. The sacrospinous ligament sutures were stitched to the vaginal folds on both sides of the pelvis. Vagina was closed with interlocking stitches of Vicryl 2-0 continuous stitch and sacrospinous sutures were tied and the vaginal vault was lifted. Following this, the procedure repair was performed with two Allis clamps applied at the mucocutaneous junction about 1 cm from the fourchette on each side. The vaginal skin in between the two Allis clamp was excised using curved Ocasio scissors. The vagina was dissected off the perineum using curved Ocasio scissors. Following this the vagina was opened in the midline after dissecting the vagina using Metzenbaum scissors using the push spread technique from the rectum, the 2 flaps of vagina dissected off underlying muscles using both sharp and blunt dissection. The levator ani were approximated using two interrupted sutures of Vicryl 0. Excess vaginal skin was excised using curved Ocasio scissors. The vagina was closed with interlocking stitches of Vicryl 2-0 and the perineal skin was approximated using Vicryl 2-0 subcu. A vaginal pack was inserted in the Strickland catheter. The patient tolerated the procedure well. Lap, instrument, and needle count was correct x2 at the end of the procedure. Daphney Ruff MD DD/STEFFANY /[id number]
[2019-08-04] MEDS: ONDANSETRON HCL INJ 2MG/ML 2ML 2 MG/ML VIAL IV PRN (18:21)
[2019-08-04] MEDS ORDERED: PROPOFOL IV EMULSION 10 MG/ML 20 ML VIAL ONE (18:49)
[2019-08-04] MEDS ORDERED: KETOROLAC TROMETHAMINE 30 MG/ML VIAL ONE (18:49)
[2019-08-04] MEDS ORDERED: DEXAMETHASONE SOD PHOS INJ 4 MG/ML VIAL ONE (18:49)
[2019-08-04] MEDS ORDERED: SEVOFLURANE INHAL SOLN 250 ML PEN BTL ONE (18:49)
[2019-08-04] MEDS ORDERED: GLYCOPYRROLATE INJ 1MG/ 5 ML SYR ONE (18:49)
[2019-08-04] MEDS ORDERED: NEOSTIGMINE 5 MG/5ML SYR ONE (18:49)
[2019-08-04] MEDS ORDERED: CEFAZOLIN SOD 1 GM VIAL ONE (18:49)
[2019-08-04] MEDS ORDERED: LIDOCAINE HCL 2% LOCAL INJ 5 ML SDV VIAL INJ ONE (18:49)
[2019-08-04] MEDS ORDERED: ONDANSETRON HCL INJ 2MG/ML 2ML 2 MG/ML VIAL ONE (18:49)
[2019-08-04] MEDS ORDERED: ROCURONIUM BROMIDE 10 MG/ML 5ML VIAL ONE (18:49)
[2019-08-04] MEDS ORDERED: LABETALOL HCL 5 MG/ML 20ML VIAL ONE (18:49)
[2019-08-04] MEDS ORDERED: MIDAZOLAM HCL 2 MG/2 ML VIAL ONE (19:16)
[2019-08-04] MEDS ORDERED: ATORVASTATIN 40 MG TAB PO SCH (21:00)
[2019-08-04] MEDS ORDERED: ATORVASTATIN 20 MG TAB PO SCH (21:00)
--- NOTE | 2019-08-04 21:11 | NUR ---
received report from day nurse. patient is resting comfortably in the bed. bed is in the lowest position and call prado is within reach. will continue to monitor patient.
[2019-08-05] VITALS: BP 160/86
[2019-08-05 04:00] VITALS: BP 146/75
[2019-08-05 05:15] LABS: BASOPHILS % 0.1 % (0.0-1.0); HEMOGLOBIN 11.9 g/dL (12.0-16.0); LYMPHOCYTES # (AUTO) 1.3 (1.0-3.2); LYMPHOCYTES % 8.7 % (18.0-39.1); MEAN CORPUSCULAR HEMOGLOBIN 29.8 pg (28-32); MEAN CORPUSCULAR HGB CONC 32.2 g/dL (31-35); MEAN CORPUSCULAR VOLUME 92.7 fL (81-99); MONOCYTES # (AUTO) 0.9 (0.2-0.8); MONOCYTES % 6.5 % (4.4-11.3); NEUTROPHILS # (AUTO) 12.1 (2.1-6.9); NEUTROPHILS % 84.2 % (38.7-80.0); PLATELET COUNT 236 x10e3/uL (140-360); RED BLOOD COUNT 3.99 x10e6/uL (3.6-5.1); RED CELL DISTRIBUTION WIDTH 14.3 % (11.7-14.4)
[2019-08-05 05:35] LABS: ANION GAP 15.2 mmol/L (8-16); CALCIUM 8.8 mg/dL (8.4-10.2); CREATININE, SERUM 1.24 mg/dL (0.57-1.11); POTASSIUM 5.2 mmol/L (3.5-5.1)
[2019-08-05] MEDS ORDERED: LEVOTHYROXINE SODIUM 112 MCG TAB PO SCH ×2 (06:00→09:00)
--- NOTE | 2019-08-05 06:25 | NUR ---
Strickland catheter has been removed. final amount voided into catheter bag was 350cc. patient tolerated procedure well.
--- NOTE | 2019-08-05 07:10 | NUR ---
report given to day nurse. patient is resting comfortably in bed. bed is in lowest position and call prado is within reach.
[2019-08-05 07:38] VITALS: BP 127/62
[2019-08-05] MEDS: LACTATED RINGER'S 1,000 ML IV SCH ×2 (08:02→14:20)
[2019-08-05] MEDS ORDERED: METOPROLOL TARTRATE 25 MG TAB PO SCH (09:00)
[2019-08-05] MEDS ORDERED: AMLODIPINE BESYLATE 5 MG TAB PO SCH (09:00)
[2019-08-05] MEDS: METOPROLOL TARTRATE 50 MG TAB PO SCH ×2 (10:33→17:03)
[2019-08-05 11:32] VITALS: BP 144/80
[2019-08-05 11:33] VITALS: BP 144/80
[2019-08-05] MEDS: ONDANSETRON HCL INJ 2MG/ML 2ML 2 MG/ML VIAL IV PRN (12:21)
[2019-08-05 15:37] VITALS: BP 137/75
[2019-08-05] MEDS ORDERED: ENOXAPARIN SOD INJ 40 MG/0.4 ML SYR SC SCH (18:00)
[2019-08-05] MEDS ORDERED: COLACE100 MG PO (18:05)
[2019-08-05] MEDS ORDERED: TYLENOL WITH C1 EACH PO (18:05)
== END 2019-08-05 19:50 | disposition home or self-care (01) ==
LOC: OR 10:15 → PACU V 14:20 → IMCU 15:19
PROVIDERS: ADMIT Obstetrics & Gynecology; ATTEND Obstetrics & Gynecology
DX: N81.89 Other female genital prolapse (principal); Z01.810 Encounter for preprocedural cardiovascular examination; Z01.812 Encounter for preprocedural laboratory examination; Z01.811 Encounter for preprocedural respiratory examination; E03.9 Hypothyroidism, unspecified; I10 Essential (primary) hypertension; I25.10 Atherosclerotic heart disease of native coronary artery without angina pectoris; Z98.61 Coronary angioplasty status; E78.5 Hyperlipidemia, unspecified; Z86.73 Personal history of transient ischemic attack (TIA), and cerebral infarction without residual deficits; N81.2 Incomplete uterovaginal prolapse; N81.6 Rectocele; R32 Unspecified urinary incontinence
CPT/HCPCS: 36415; 57260; 57282; 58260; 80053; 85025; 88307; G0378 ×2; J0131; J0690; J1100; J1170; J1650; J1885; J2001; J2250; J2405 ×2; J2704; J3490 ×2; J7121 ×2